=== PATIENT | male | born 1995 | race Caucasian/White ===

== ENCOUNTER 2017-02-26 08:21 | Emergency (ER) | payer OTHER | END 2017-02-26 09:52 | disposition home or self-care (01) | LOC: M ED 08:21 | DX: L03.115 Cellulitis of right lower limb (principal); F17.200 Nicotine dependence, unspecified, uncomplicated | CPT/HCPCS: 87186 ==

== ENCOUNTER → 2017-03-12 | Outpatient (CLI) | payer MEDICAID | LOC: M OUTALCOH 08:02 | DX: Z13.9 Encounter for screening, unspecified (principal); F12.20 Cannabis dependence, uncomplicated ==

== ENCOUNTER 2017-04-02 09:43 | Outpatient (RCR) | payer MEDICAID | END 2017-04-04 | LOC: M OUTALCOH 09:43 | DX: F12.20 Cannabis dependence, uncomplicated (principal); Z72.0 Tobacco use ==

== ENCOUNTER 2017-04-12 12:55 | Outpatient (RCR) | payer MEDICAID | END 2017-05-05 | LOC: M OUTALCOH 12:55 | DX: F12.20 Cannabis dependence, uncomplicated (principal); Z72.0 Tobacco use ==

== ENCOUNTER 2022-01-25 15:56 | Emergency (ER) | payer MEDICAID ==
[~2022-01-25] VITALS: Ht 185.4 cm; Wt 95.4 kg
[2022-01-25 15:56] VITALS: BP 144/87
== END 2022-01-25 19:34 | disposition left against medical advice (07) ==
LOC: M ED 15:56
DX: Z53.21 Procedure and treatment not carried out due to patient leaving prior to being seen by health care provider (principal)

== ENCOUNTER 2023-12-24 09:24 | Emergency (ER) | payer MEDICAID, SELFPAY ==
[~2023-12-24] VITALS: Ht 185.4 cm; Wt 93.0 kg
[2023-12-24] MEDS ORDERED: CEPH500C PO (11:50)
[2023-12-24 12:03] VITALS: BP 138/80; TEMP 98.1; O2SAT 100
== END 2023-12-24 13:17 | disposition home or self-care (01) ==
LOC: M ED 09:24
DX: S62.630A Displaced fracture of distal phalanx of right index finger, initial encounter for closed fracture (principal); W23.2XXA Caught, crushed, jammed or pinched between a moving and stationary object, initial encounter; F17.200 Nicotine dependence, unspecified, uncomplicated; F12.10 Cannabis abuse, uncomplicated; Y92.009 Unspecified place in unspecified non-institutional (private) residence as the place of occurrence of the external cause; Y93.89 Activity, other specified; Y99.9 Unspecified external cause status; Z79.2 Long term (current) use of antibiotics

== ENCOUNTER 2024-11-28 09:04 | Inpatient (IN) | payer MEDICAID ==
[~2024-11-28] VITALS: Ht 185.4 cm; Wt 210.0 kg
[~2024-11-28 09:04] MED LIST: CEPH500C PO
[2024-11-28] MEDS ORDERED: OLANZapine 5 MG TAB PO PRN (13:35)
[2024-11-28] MEDS ORDERED: HALOPERIDOL 5 MG TAB PO PRN (13:35)
[2024-11-28] MEDS ORDERED: MOM 30 ML SUSPENSION UDC PO PRN (13:35)
[2024-11-28] MEDS ORDERED: ACETAMINOPHEN 325 MG TAB PO PRN (13:35)
[2024-11-28] MEDS ORDERED: MAALOX 30 ML SUSP *UDC PO PRN (13:35)
[2024-11-28] MEDS ORDERED: traZODone 50 MG TAB PO PRN (13:35)
[2024-11-28] MEDS ORDERED: IBUPROFEN 400 MG TAB PO PRN (13:35)
[2024-11-28] MEDS ORDERED: HOME MED LIST COMPLETE! XX SCH (16:05)
[2024-11-28] MEDS: NICOTINE 14 MG/24 HR TRANSDERMAL TD SCH (17:10)
[2024-11-29 06:22] VITALS: BP 148/80; TEMP 97.6; O2SAT 100
[2024-11-29 15:07] VITALS: BP 137/82; TEMP 98.1; O2SAT 98
[2024-11-29] MEDS: traZODone 50 MG TAB PO SCH (20:28)
[2024-11-30 06:22] VITALS: BP 140/80; TEMP 97.4; O2SAT 100
[2024-11-30 14:43] VITALS: BP 141/88; TEMP 98.2; O2SAT 99
[2024-12-01 06:31] VITALS: BP 150/90; TEMP 98.5; O2SAT 99
[2024-12-01 15:33] VITALS: BP 133/83; TEMP 98.3; O2SAT 98
[2024-12-01] MEDS: LORazepam 1 MG TAB PO PRN (21:57)
[2024-12-02 06:28] VITALS: BP 148/88; TEMP 97.4; O2SAT 100
[2024-12-02] MEDS ORDERED: BUSP10TA PO (08:21)
[2024-12-02] MEDS ORDERED: ABIL10TA9 PO (08:21)
== END 2024-12-02 10:34 | disposition home or self-care (01) | DRG 753 ==
LOC: EDBD 09:04 → M ED 09:04 → EEVIPCON 13:33 → M ED INP 13:33 → M PSY 16:06
PROVIDERS: ADMIT Internal Medicine; ATTEND Internal Medicine
DX: F31.5 Bipolar disorder, current episode depressed, severe, with psychotic features (principal); F14.10 Cocaine abuse, uncomplicated; F41.1 Generalized anxiety disorder; F12.90 Cannabis use, unspecified, uncomplicated

== ENCOUNTER 2024-12-23 17:06 | Emergency (ER) | payer MEDICAID, OTHER ==
[~2024-12-23] VITALS: Ht 185.4 cm; Wt 98.8 kg
[~2024-12-23 17:06] MED LIST changes: +ABIL10TA9 PO; +BUSP10TA PO
[2024-12-23 17:10] VITALS: BP 130/75; TEMP 97.7; O2SAT 98
== END 2024-12-23 18:35 | disposition left against medical advice (07) ==
LOC: M ED 17:06
DX: Z53.21 Procedure and treatment not carried out due to patient leaving prior to being seen by health care provider (principal)

== ENCOUNTER 2025-01-15 13:05 | Emergency (ER) | payer OTHER ==
[~2025-01-15] VITALS: Ht 185.4 cm; Wt 98.5 kg
[2025-01-15 13:09] VITALS: BP 137/85; TEMP 97.5; O2SAT 100
[2025-01-15] MEDS ORDERED: ROPI5TAB19 (13:17)
[2025-01-15] MEDS ORDERED: MIRT-10 (13:17)
== END 2025-01-15 16:55 | disposition left against medical advice (07) ==
LOC: M ED 13:05
DX: Z53.21 Procedure and treatment not carried out due to patient leaving prior to being seen by health care provider (principal)

== ENCOUNTER 2025-01-19 10:42 | Emergency (ER) | payer OTHER ==
[~2025-01-19] VITALS: Ht 185.4 cm; Wt 99.0 kg
[2025-01-19 11:18] LABS: PLATELET COUNT, AUTOMATED 172 10^3/uL (150-450)
[2025-01-19 11:45] LABS: AMPHETAMINES LEVEL URINE NEGATIVE (NEGATIVE); BARBITURATES URINE NEGATIVE (NEGATIVE); BENZODIAZEPINES URINE NEGATIVE (NEGATIVE); METHADONE URINE NEGATIVE (NEGATIVE); OPIATES URINE NEGATIVE (NEGATIVE); PHENCYCLIDINE URINE NEGATIVE (NEGATIVE)
[2025-01-19 11:47] LABS: ETHYL ALCOHOL (ETHANOL) 0.005 % (0.000-0.010)
[2025-01-19 11:49] LABS: CANNABINOIDS URINE POSITIVE (NEGATIVE); COCAINE METABOLITE URINE POSITIVE (NEGATIVE)
[2025-01-19 11:49] LABS: ALT/SGPT 35 U/L (7.0-40); AST/SGOT 23 U/L (<34); CALCIUM LEVEL 9.4 MG/DL (8.5-10.1); CARBON DIOXIDE LEVEL 26 MMOL/L (20-31); CHLORIDE LEVEL 107 MMOL/L (98-107); CREATININE FOR GFR 0.78 MG/DL (0.70-1.30); GLOMERULAR FILTRATION RATE > 90.0 (>60); POTASSIUM SERUM 4.5 MMOL/L (3.5-5.1); SALICYLATE LEVEL < 3.0 MG/DL (<30); SODIUM LEVEL 143 MMOL/L (136-145)
[2025-01-19 13:27] VITALS: BP 150/89; TEMP 98.2; O2SAT 100
== END 2025-01-19 13:32 | disposition home or self-care (01) ==
LOC: M ED 10:42
DX: F41.9 Anxiety disorder, unspecified (principal); F32.A Depression, unspecified; F17.200 Nicotine dependence, unspecified, uncomplicated; Z79.899 Other long term (current) drug therapy

== ENCOUNTER → 2025-01-19 | Outpatient (CLI) | payer OTHER ==
[~2025-01-19] MED LIST changes: +MIRT-10; +ROPI5TAB19
== END ==
LOC: M OUTALCOH 08:56
PROVIDERS: ATTEND Psychiatry & Neurology Psychiatry
DX: Z13.30 Encounter for screening examination for mental health and behavioral disorders, unspecified (principal)